=== PATIENT | male | born 1940 | race Caucasian/White ===

== ENCOUNTER 2016-07-05 11:39 | Emergency (ER) | payer OTHER, MEDICARE ==
[~2016-07-05] VITALS: Ht 193 cm; Wt 113.6 kg
[~2016-07-05 11:39] MED LIST: ASP81TEC PO; BETA CAROTENE PO; BILLBERRY PO; BIMA2.5D OU; CHOL500011 PO; CINNAMON BARK PO; Co Q-10 PO; GARLIC PO; HYDR25TA4 PO; LISI20TA PO; POTA99TA15 PO; PRO5 PO; SELE200C PO; ZINC50TA54 PO; [UNRECOGNIZED DRUG - CODE] PO; [UNRECOGNIZED DRUG - CODE] PO
[2016-07-05 11:42] VITALS: BP 167/105; PULSE 91; RESP 16; O2SAT 97
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
[2016-07-05 12:04] LABS: BASOPHILS % (AUTO) 0.4 % (0-3); EOSINOPHILS % (AUTO) 5.4 % (0-5); MONOCYTES % (AUTO) 9.6 % (4-12); Mean Corpuscular Hemoglobin 29.6 pg (27.0-35.0); NEUTROPHILS % (AUTO) 58.2 % (40-74); Platelet Count 306 bil/L (150-400)
[2016-07-05 12:07] LABS: INR 2.4 ratio
[2016-07-05 12:15] LABS: TROPONIN T 0.01 ug/L (0.0-0.011)
--- NOTE | 2016-07-05 12:21 | DRSVH ---
PROCEDURE: X-RAY CHEST ONE VIEW, PORTABLE ([id number]) INDICATIONS: CHEST PAIN TECHNIQUE: One view of the chest was acquired. COMPARISON: [facility], CR, XR CHEST 2V AP/PA AND LAT, 11/12/2015, 3:52 PM. [facility], CR, CHEST 1VW (PORTABLE), 06/04/2012, 17:37. FINDINGS: Surgical changes and devices: Sternotomy and CABG. Lungs and pleura: No pleural effusions or pneumothorax. Lungs are clear. Mediastinum: Mediastinal contours appear normal. Heart size is normal. Bones and chest wall: No suspicious bony lesions. Overlying soft tissues appear unremarkable. IMPRESSION: No acute cardiopulmonary disease. Dictated by: Jacob Olmos M.D. on 07/05/2016 at 12:20 Approved by: Jacob Olmos M.D. on 07/05/2016 at 12:20
[2016-07-05 13:41] VITALS: BP 165/97; PULSE 94; RESP 22; O2SAT 96
--- NOTE | 2016-07-05 14:04 | DRSVH ---
PROCEDURE: X-RAY LEFT KNEE, THREE VIEWS ([id number]) INDICATIONS: trauma TECHNIQUE: 3 views of the knee were acquired. COMPARISON: None. FINDINGS: Bones: There is a fracture in the lateral tibial plateau with no significant central depression. The re is a lucency in the lateral femoral condyle, suspicious for nondisplaced fracture. There is mild l ateral subluxation of patella. Soft tissues: Small joint effusion. There is prepatellar soft tissues swelling and thickening of the patella tendon. Vascular calcification consistent with atherosclerosis. IMPRESSION: 1. Lateral tibial plateau fracture. 2. ? Nondisplaced fracture of the lateral femoral condyle. 3. Small knee joint effusion. 4. Prepatellar soft tissue swelling and thickening of the patellar tendon. Patellar is slightly later ally subluxed. Dictated by: Jacob Olmos M.D. on 07/05/2016 at 13:59 Approved by: Jacob Olmos M.D. on 07/05/2016 at 14:03
[2016-07-06] MEDS ORDERED: OXYC1TAB24 PO (16:01)
== END 2016-07-05 13:40 | disposition home or self-care (01) ==
LOC: SED 11:39
DX: S82.142A Displaced bicondylar fracture of left tibia, initial encounter for closed fracture (principal); S72.425A Nondisplaced fracture of lateral condyle of left femur, initial encounter for closed fracture; S16.1XXA Strain of muscle, fascia and tendon at neck level, initial encounter; S00.01XA Abrasion of scalp, initial encounter; S50.311A Abrasion of right elbow, initial encounter; S50.312A Abrasion of left elbow, initial encounter; V03.00XA Pedestrian on foot injured in collision with car, pick-up truck or van in nontraffic accident, initial encounter; Y93.01 Activity, walking, marching and hiking; Y99.8 Other external cause status; Y92.481 Parking lot as the place of occurrence of the external cause; Z79.82 Long term (current) use of aspirin; Z95.2 Presence of prosthetic heart valve; Z79.01 Long term (current) use of anticoagulants

== ENCOUNTER 2016-07-06 14:10 | Emergency (ER) | payer OTHER, MEDICARE ==
[~2016-07-06] VITALS: Ht 190.5 cm; Wt 109.1 kg
[2016-07-06 14:18] VITALS: BP 146/89; PULSE 113; RESP 20; O2SAT 99
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
[2016-07-06] MEDS ORDERED: OXYC1TAB24 PO (16:01)
--- NOTE | 2016-07-06 16:02 | DRSVH ---
PROCEDURE: CT KNEE LEFT W/O CONTRAST ([id number]) INDICATIONS: tib pleteau fx TECHNIQUE: Noncontrast 1-1.5 mm axial sections acquired from the mid-patella to the proximal tibia, with coronal and sagittal reformats. COMPARISON: [facility], CR, XR KNEE 3VW LT, 07/05/2016, 13:10. FINDINGS: Image quality: Excellent. Bones: There is a comminuted lateral tibial plateau fracture, centrally positioned, with a fracture f ragment extending below the articular margin measuring up to 2.8 x 2.3 cm, representing a depression bone fragment extending at least 8 mm below the expected lateral articular margin of the tibial plate au. The overlying lateral femoral condyle does not show a definite fracture. Mild to moderate osteo arthritis is seen at the patellofemoral joint. Soft tissues: There is a small to moderate knee joint effusion, no definite intra-articular loose bod y is found. IMPRESSION: Comminuted lateral tibial plateau fracture with depressed bone fragment centrally, wideni ng the fracture planes, and with depression from the expected articular surface level by at least 8 m m. Secondary moderate joint effusion. No definite intra-articular loose bodies. Dictated by: Donny To M.D. on 07/06/2016 at 15:56 Approved by: Donny To M.D. on 07/06/2016 at 16:00
--- NOTE | 2016-07-06 16:25 | DRSVH ---
PROCEDURE: X-RAY LEFT ANKLE, MINIMUM THREE VIEWS ([id number]) INDICATIONS: trauma, lateral ankle pain TECHNIQUE: 3 views of the ankle were acquired. COMPARISON: None. FINDINGS: Bones: Nondisplaced medial malleolar fracture. Chronic posterior and plantar calcaneal spurring. Diff use midfoot degenerative spurring and subchondral sclerosis. Soft tissues: No tibiotalar joint effusion. Achilles tendon appears normal. Vascular calcification s are noted. IMPRESSION: Medial malleolar fracture, nondisplaced. Dictated by: Otilio Willams M.D. on 07/06/2016 at 16:22 Approved by: Otilio Willams M.D. on 07/06/2016 at 16:23
--- NOTE | 2016-07-06 17:06 | DRSVH ---
PROCEDURE: X-RAY RIGHT ELBOW COMPLETE, MINIMUM THREE VIEWS ([id number]) INDICATIONS: pain TECHNIQUE: 3 views of the elbow were acquired. COMPARISON: None. FINDINGS: Bones: No fractures or dislocations. No suspicious bony lesions. Note is made of a triceps tendon insertion spur at the posterior olecranon, and also moderate degree of degenerative osteophytic spurr ing at the medial aspect of the olecranon fossa. Soft tissues: No elbow joint effusion. No suspicious soft tissue calcifications. 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 Dictated by: Donny To M.D. on 07/06/2016 at 17:03 Approved by: Donny To M.D. on 07/06/2016 at 17:04
== END 2016-07-06 17:55 | disposition home or self-care (01) ==
LOC: SED 14:10
DX: S82.142A Displaced bicondylar fracture of left tibia, initial encounter for closed fracture (principal); S82.65XA Nondisplaced fracture of lateral malleolus of left fibula, initial encounter for closed fracture; S50.311A Abrasion of right elbow, initial encounter; V03.10XA Pedestrian on foot injured in collision with car, pick-up truck or van in traffic accident, initial encounter; Y92.410 Unspecified street and highway as the place of occurrence of the external cause; Y93.89 Activity, other specified; Y99.8 Other external cause status; E11.9 Type 2 diabetes mellitus without complications; K21.9 Gastro-esophageal reflux disease without esophagitis; Z95.4 Presence of other heart-valve replacement; Z79.01 Long term (current) use of anticoagulants; Z79.82 Long term (current) use of aspirin